=== PATIENT | male | born 1960 | race Caucasian/White ===

== ENCOUNTER 2017-01-30 22:52 | Emergency (ER) | payer BC ==
[2017-01-30] MEDS ORDERED: Aspirin 81 MG Tab.Chew PO ONE (23:23)
[2017-01-30] MEDS ORDERED: Nitroglycerin 0.4 MG Tab.SL SL ONE (23:25)
[2017-01-30 23:34] LABS: CHLORIDE,CL 102 mEq/L (98-106); SODIUM,NA 139 mEq/L (136-145)
--- NOTE | 2017-01-30 23:38 | EDM.PDOC ---
ED HISTORY OF PRESENT ILLNESS - General Chief Complaint: Respiratory Problem Stated Complaint: shortness of breath Time Seen by Provider: 01/30/17 23:22 Source of Information: Reports: Patient History Limitations: Reports: No limitations - History of Present Illness INITIAL COMMENTS - FREE TEXT/NARRATIVE: in with c/o MS cp to left arm that started x 2 weeks ago, worse tonight while at work, denies pain now, no sob, no fever or chills, no abd pain,no nvdc, no irregular heart beat or palpitations. has a hx of CABG and 2 PR's. pt also advised has self stopped b/p and cholesterol meds, advise it "makes my stomach upset", asked if he has told his pcp and he advised "no". asked if he has been taking his diabetic meds, advised" i don't know, i'm not sure". Severity: mild Location, General: Reports: chest Quality: Reports: Ache Improves with: Reports: None Worsens with: Reports: None Context, General: Reports: Activity Associated Symptoms (General): Reports: chest pain. Denies: cough, cough w sputum, fever/chills, nausea/vomiting, rash, shortness of breath, weakness Treatments CELL POURER: Reports: Other (see below) (none) - Related Data Allergies/ADRs: Allergies Allergy/AdvReac Type Severity Reaction Status Date / Time cefaclor [From Ceclor] Allergy Severe Rash Verified 01/30/17 23:13 levofloxacin [From Levaquin] Allergy Intermediate Itching Verified 01/30/17 23: 13 Home Meds: Home Meds Aspirin [Juan J Chewable] 81 mg PO DAILY 06/30/14 [History] Carvedilol [Carvedilol] 3.125 mg PO DAILY 06/30/14 [History] Insulin Glarg,Human.Rec.Analog [Lantus Solostar] 20 units SQ BEDTIME 06/30/14 [ History] Losartan Potassium [Losartan Potassium] 25 mg PO DAILY 06/30/14 [History] Insuln Asp Prot/Insulin Aspart [NovoLOG Mix 70-30] 20 units SQ BID 01/30/17 [ History] Past Medical History Cardiovascular History: Reports: Angina, CAD, High cholesterol, Hypertension, [place] (X 2) Respiratory History: Reports: COPD, Sleep apnea Endocrine/Metabolic History: Reports: Diabetes, type II - Past Surgical History Cardiovascular Surgical History: Reports: Carotid stents, Coronary artery bypass , Other (see below) (pacer/defib) Social & Family History - Family History Cardiac: Reports: CAD, Hypertension Oncologic: Reports: Other (see below) (breast and prostate ca) - Tobacco Use Smoking Status *Q: Former Smoker (non x 20 years) Second Hand Smoke Exposure: No - Alcohol Use Days Per Week of Alcohol Use: 7 Number of Drinks Per Day: 3 Total Drinks Per Week: 21 Alcohol Use Frequency: Daily - Recreational Drug Use Recreational Drug Use: No - Living Situation & Occupation Living situation: Reports: single ED ROS GENERAL - Review of Systems Review Of Systems: See Below Constitutional: Reports: no symptoms. Denies: fever, chills HEENT: Reports: No symptoms Respiratory: Reports: no symptoms. Denies: shortness of breath Cardiovascular: Reports: Chest pain. Denies: Blood pressure problem, Dyspnea on exertion, Edema, Palpitations, Syncope Endocrine: Reports: no symptoms GI/Abdominal: Reports: No symptoms. Denies: Abdominal pain, Nausea, Vomiting Musculoskeletal: Reports: no symptoms. Denies: neck pain, back pain Skin: Reports: no symptoms Neurological: Reports: no symptoms Psychiatric: Reports: No symptoms Hematologic/Lymphatic: Reports: no symptoms Immunologic: Reports: no symptoms ED EXAM, GENERAL - Physical Exam Exam: See Below Exam Limited By: No limitations General Appearance: alert, WD/WN, no apparent distress Ears: normal external exam Nose: normal inspection Throat/Mouth: Normal inspection, Normal voice, No airway compromise Head: atraumatic, normocephalic Neck: normal inspection, supple, non-tender, full range of motion Respiratory/Chest: no respiratory distress, lungs clear, normal breath sounds, no accessory muscle use Cardiovascular: normal peripheral pulses, regular rate, rhythm, no edema, no murmur Peripheral Pulses: 2+: radial (L), radial (R), posterior tibial (L), posterior tibial (R) GI/Abdominal: soft, non tender, other (obese) Back Exam: normal inspection, full range of motion Extremities: normal inspection, normal range of motion, non-tender, no pedal edema, normal capillary refill Neurological: alert, oriented, normal cognition, normal gait, no motor/sensory deficits Psychiatric: normal affect, normal mood Skin Exam: Warm, Dry, Intact, Normal color, No rash EKG INTERPRETATION EKG Date: 01/30/17 Time: 23:05 Rhythm: other (SR) Rate (beats/min): 102 P-wave: present QRS: RBBB ST-T: normal QT: normal EKG Interpretation Comments: No STEMI, Stach rate 102, RBBB Course - Vital Signs Last Recorded V/S: Last Vital Signs Temp 36.9 C 01/31/17 00:33 Pulse 98 01/31/17 00:33 Resp 20 01/31/17 00:33 BP 182/95 H 01/31/17 00:33 Pulse Ox 99 01/31/17 00:33 - Orders/Labs/Meds Orders: Active Orders 24 hr Category Date Time Status Chest 2V [CR] Stat Exams 01/30/17 23:25 Taken Heparin Sodium/D5W [Heparin 25,000 Units in D5W 500 ML] Med 01/30/17 23:46 Active 25,000 units in 500 ml IV NOW Medication Orders Heparin Sodium/Dextrose (Heparin 25,000 Units In D5w 500 Ml) 25,000 units in 500 mls @ 20 mls/hr IV NOW STA PRN Reason: Protocol Stop: 02/01/17 00:45 Last Admin: 01/31/17 00:24 Dose: 20 ml/hr, 20 mls/hr Labs: Laboratory Tests 01/30/17 01/30/17 01/30/17 Range/Units 23:17 23:17 23:17 WBC 9.6 (5.0-10.0) 10^3/uL RBC 4.68 (4.50-6.00) 10^6/uL Hgb 13.7 L (14.0-18.0) g/dL Hct 40.5 (40.0-54.0) % MCV 86.5 (82.0-94.0) fL MCH 29.3 (27.0-32.0) pg MCHC 33.8 (33.0-38.0) g/dL RDW Coeff of Celina 13.5 (11.0-15.0) % Plt Count 239 (150-400) 10^3/uL Neut % (Auto) 62.5 (35-85) % Lymph % (Auto) 27.8 (10-55) % [place] % (Auto) 6.5 (0-16) % Eos % (Auto) 2.7 (0-5) % Baso % (Auto) 0.5 (0-3) % Neut # 5.99 (1.80-7.00) 10^3/uL Lymph # 2.67 (1.00-4.80) 10^3/uL [place] # 0.62 (0.00-0.80) 10^3/uL Eos # 0.26 (0.00-0.45) 10^3/uL Baso # 0.05 10^3/uL PT 10.3 (9.7-12.3) SEC INR 0.97 (0.92-1.18) APTT 28.6 (24.5-30.9) SEC Sodium 139 (136-145) mEq/L Potassium 3.6 (3.5-5.0) mEq/L Chloride 102 (98-106) mEq/L Carbon Dioxide 24 (21-32) mmol/L BUN 17 D (7-18) mg/dL Creatinine 1.1 (0.7-1.3) mg/dL Est Cr Clr Drug Dosing 70.11 mL/min Estimated GFR (MDRD) > 60 (>=60) mL/min Glucose 333 H* (75-99) mg/dL Calcium 9.2 (8.4-10.1) mg/dL Lactate Dehydrogenase 168 (100-190) U/L Creatine Kinase 95 (35-232) U/L Troponin I 0.116 H (0.00-0.06) ng/mL Meds: Medications Generic Name Dose Route Start Last Admin Trade Name Freq PRN Reason Stop Dose Admin Heparin Sodium/Dextrose 25,000 units in 500 mls @ 20 mls/hr 01/30/17 23:46 00:24 Heparin 25,000 Units In D5w 500 Ml IV 02/01/17 00:45 20 ml/hr NOW STA 20 mls/hr Protocol Administration Discontinued Medications Generic Name Dose Route Start Last Admin Trade Name Freq PRN Reason Stop Dose Admin Aspirin 324 mg 01/30/17 23:23 01/30/17 23:38 Aspirin PO 01/30/17 23:24 324 mg ONETIME ONE Administration Heparin Sodium (Porcine) 5,000 units 01/30/17 23:46 01/31/17 00:06 Heparin Sodium IVPUSH 01/30/17 23:47 5,000 units .BOLUS ONE Administration Nitroglycerin 0.4 mg 01/30/17 23:25 Nitrostat SL 01/30/17 23:26 ONETIME ONE Simvastatin 40 mg 01/31/17 20:00 Zocor PO BEDTIME DAVIDSON Simvastatin 40 mg 01/31/17 00:36 Zocor PO 01/31/17 00:37 ONETIME ONE - Radiology Interpretation Free Text/Narrative:: cxr neg Departure - Departure Time of Disposition: 00:14 Disposition: DC/Tfer to Acute Hospital 02 Condition: good Clinical Impression: ACS (acute coronary syndrome) Referrals: Provider,Unknown [Primary Care Provider] - Forms: Interfacility Transfer [facility] ED Communication - ED Communication Date/Time Date: 01/30/17 Time Called: 23:48 - Discussed Case With (1) Discussed Case With (1): Other (Dulce the transfer person at [facility] , advised no beds) Person/s Notified (2): Karla Falcon (Hospitalist at [facility] [place]) - Conversation Summary Admitting Provider Agreed to Patient's Admission: Yes Summary Comment: [id number] Dr. Falcon will admit pt - Problem List & Annotations (1) ACS (acute coronary syndrome) SNOMED Code(s): 106792378 Code(s): I24.9 - ACUTE ISCHEMIC HEART DISEASE, UNSPECIFIED Status: Acute Priority: High Current Visit: Yes Onset Date: ~01/31/17 - Problem List Review Problem List Initiated/Reviewed/Updated: Yes - My Orders Last 24 Hours: My Active Orders 01/30/17 23:25 Chest 2V [CR] Stat 01/30/17 23:46 Heparin Sodium/D5W [Heparin 25,000 Units in D5W 500 ML] 25,000 units in 500 ml IV NOW - Assessment/Plan Last 24 Hours: My Active Orders 01/30/17 23:25 Chest 2V [CR] Stat 01/30/17 23:46 Heparin Sodium/D5W [Heparin 25,000 Units in D5W 500 ML] 25,000 units in 500 ml IV NOW Plan: pt benefit of transfer will be eval and treat by a clinical trials data coordinator not available at [place], Risk is MVC, worsening of condition and .
[2017-01-30] MEDS ORDERED: Heparin Sodium/D5W 25,000 UNITS/500 ML BAG IV STA (23:46)
[2017-01-30] MEDS ORDERED: Heparin Sodium 10,000 Units/1 ML MDV IVPUSH ONE (23:46)
[2017-01-31] MEDS ORDERED: Simvastatin 40 MG Tab PO ONE (00:36)
[2017-01-31] MEDS ORDERED: Nitroglycerin 2% Oint 1 GM UD Packet ONE (00:57)
[2017-01-31] MEDS ORDERED: Nitroglycerin 2% Oint 1 GM UD Packet TOP ONE (01:00)
[2017-01-31 01:53] VITALS: BP 143/91
[2017-01-31] MEDS ORDERED: Simvastatin 40 MG Tab PO SCH (20:00)
== END 2017-01-31 02:23 ==
LOC: CC.ED 22:52
DX: I24.9 Acute ischemic heart disease, unspecified (principal); E78.00 Pure hypercholesterolemia, unspecified; I10 Essential (primary) hypertension; I25.2 Old myocardial infarction; J44.9 Chronic obstructive pulmonary disease, unspecified; E11.9 Type 2 diabetes mellitus without complications; Z79.4 Long term (current) use of insulin; Z79.82 Long term (current) use of aspirin; Z79.899 Other long term (current) drug therapy; I25.810 Atherosclerosis of coronary artery bypass graft(s) without angina pectoris; Z87.891 Personal history of nicotine dependence; Z88.1 Allergy status to other antibiotic agents; Z88.8 Allergy status to other drugs, medicaments and biological substances
CPT/HCPCS: 36415; 71020; 80048; 82550; 83615; 84484; 85025; 85610; 85730; 93005; 96365; 96366; 96375; 99285; A9270; J1644

== ENCOUNTER 2017-05-09 15:31 | Emergency (ER) | payer BC ==
[2017-05-09] MEDS ORDERED: Aspirin 81 MG Tab.Chew PO ONE (15:55)
[2017-05-09] MEDS: Nitroglycerin 0.4 MG Tab.SL SL PRN ×3 (15:56→16:36)
[2017-05-09 16:11] LABS: CHLORIDE,CL 101 mEq/L (98-106)
[2017-05-09] MEDS ORDERED: Morphine 2 MG/ML Syringe IVPUSH ONE (16:30)
[2017-05-09] MEDS ORDERED: Sodium Chloride 0.9% 1,000 ML IV ONE (16:30)
[2017-05-09] MEDS ORDERED: Ondansetron 4 MG/2 ML SDV IVPUSH STA (16:31)
--- NOTE | 2017-05-09 16:39 | EDM.PDOC ---
[id number] 4d chest pain Time Seen by Provider: 05/09/17 16:19 Source of Information: Reports: Patient History Limitations: Reports: No Limitations - History of Present Illness INITIAL COMMENTS - FREE TEXT/NARRATIVE: This patient is a 56 year old male that presents to the ER. Patient reports that he started on Tuesday after his second break. Patient reports that his chest pain was substernal. He reports that the pain is constant, never goes away , does wax and wane. He reports his pain when severe is a 10/10, at best is 5/ 10. He does report that he is short of breath, reports chronic shortness of breath, but reports more than usual. Patient denies garcia, dizziness, n, v, d, f, abd pain, urinary/bowel changes, rashes. Patient reports that he has history of having several MIs. Patient reports years ago having x1 BYpass vessel. He reports in January 2017 having 2 stents, in February having 1 stent. Patient is alert and oriented. Cardiac workup ordered.Patient reports this feels like previous MIs. Onset Date: 04/30/17 Onset Time: 13:00 Duration: Waxing/Waning Location: Reports: Chest Severity: Moderate Improves with: Reports: None Worsens with: Reports: None Associated Symptoms: Reports: Chest Pain, Shortness of Breath. Denies: Confusion, Cough, cough w sputum, Diaphoresis, Fever/Chills, Headaches, Loss of Appetite, Malaise, Nausea/Vomiting, Rash, Seizure, Syncope, Weakness Middle Chest Pain Score (Numeric/FACES): 5 - Related Data Allergies Allergy/AdvReac Type Severity Reaction Status Date / Time cefaclor [From Ceclor] Allergy Severe Rash Verified 05/09/17 16:13 levofloxacin [From Levaquin] Allergy Intermediate Itching Verified 05/09/17 16: 13 Home Meds: Home Meds Aspirin [Juan J Chewable] 81 mg PO DAILY 06/30/14 [History] Carvedilol [Carvedilol] 3.125 mg PO DAILY 06/30/14 [History] Insuln Asp Prot/Insulin Aspart [NovoLOG Mix 70-30] 20 units SQ BID 01/30/17 [ History] Clopidogrel Bisulfate [Clopidogrel] 75 mg PO DAILY 03/26/17 [History] Furosemide [Furosemide] 40 mg PO DAILY 03/26/17 [History] Gabapentin [Gabapentin] 300 mg PO BID 03/26/17 [History] Sacubitril/Valsartan [Entresto 49 mg-51 mg Tablet] 1 tab PO DAILY 05/09/17 [ History] Tresiba 20 - 25 unit SUBCUT BEDTIME 05/09/17 [History] atorvaSTATin [Lipitor] 40 mg PO DAILY 05/09/17 [History] Past Medical History Cardiovascular History: Reports: Angina, Bypass, CAD, High Cholesterol, Hypertension, [place] Respiratory History: Reports: COPD, Sleep Apnea Endocrine/Metabolic History: Reports: Diabetes, Type II - Past Surgical History HEENT Surgical History: Reports: Tonsillectomy Cardiovascular Surgical History: Reports: Carotid Stents, Coronary Artery Bypass , Other (See Below) Social & Family History - Family History Cardiac: Reports: CAD, Hypertension Oncologic: Reports: Other (See Below) - Tobacco Use Smoking Status *Q: Former Smoker Used Tobacco, but Quit: Yes Month Tobacco Last Used: 2001 Second Hand Smoke Exposure: Yes - Caffeine Use Caffeine Use: Reports: None - Alcohol Use Days Per Week of Alcohol Use: 7 Number of Drinks Per Day: 3 Total Drinks Per Week: 21 - Recreational Drug Use Recreational Drug Use: No - Living Situation & Occupation Living situation: Reports: Single ED ROS GENERAL - Review of Systems Review Of Systems: See Below Constitutional: Reports: No Symptoms HEENT: Reports: No Symptoms Respiratory: Reports: Shortness of Breath Cardiovascular: Reports: Chest Pain, Dyspnea on Exertion Endocrine: Reports: No Symptoms GI/Abdominal: Reports: No Symptoms : Reports: No Symptoms Musculoskeletal: Reports: No Symptoms Skin: Reports: No Symptoms Neurological: Reports: No Symptoms Psychiatric: Reports: No Symptoms Hematologic/Lymphatic: Reports: No Symptoms Immunologic: Reports: No Symptoms ED EXAM, GENERAL - Physical Exam Exam: See Below Exam Limited By: No Limitations General Appearance: Alert, WD/WN, No Apparent Distress Eye Exam: Bilateral Eye: Normal Inspection, PERRL Ears: Normal External Exam, Normal Canal, Hearing Grossly Normal, Normal TMs Ear Exam: Bilateral Ear: Auricle Normal, Canal Normal, TM normal Nose: Normal Inspection, Normal Mucosa, No Blood Throat/Mouth: Normal Inspection, Normal Lips, Normal Teeth, Normal Gums, Normal Oropharynx, Normal Voice, No Airway Compromise Head: Atraumatic, Normocephalic Neck: Normal Inspection, Supple, Non-Tender, Full Range of Motion Respiratory/Chest: No Respiratory Distress, Lungs Clear, Normal Breath Sounds, No Accessory Muscle Use, Chest Non-Tender Cardiovascular: Normal Peripheral Pulses, Regular Rate, Rhythm, No Edema, No Gallop, No JVD, Systolic Murmur Peripheral Pulses: 2+: Radial (L), Radial (R), Posterior Tibial (L), Posterior Tibial (R) GI/Abdominal: Soft, Non-Tender Back Exam: Normal Inspection, Full Range of Motion Extremities: Normal Inspection, Normal Range of Motion, Non-Tender, No Pedal Edema, Normal Capillary Refill Neurological: Alert, Oriented, Normal Cognition Psychiatric: Normal Affect, Normal Mood Skin Exam: Warm, Dry, Intact, Normal Color, No Rash Lymphatic: No Adenopathy EKG INTERPRETATION EKG Date: 05/09/17 Time: 15:41 Rhythm: other (Ventricular Paced) Rate (beats/min): 88 Course - Vital Signs Last Recorded V/S: Last Vital Signs Temp 98.0 F 05/09/17 18:10 Pulse 75 05/09/17 18:10 Resp 20 05/09/17 18:10 BP 91/53 L 05/09/17 18:10 Pulse Ox 96 05/09/17 18:10 - Orders/Labs/Meds Orders: Active Orders 24 hr Category Date Time Status EKG Documentation Completion [RC] STAT Care 05/09/17 15:40 Active Oxygen Therapy, ED [RC] ASDIRECTED Care 05/09/17 15:35 Active Chest 2V [CR] Stat Exams 05/09/17 15:40 Taken Labs: Laboratory Tests 05/09/17 05/09/17 05/09/17 Range/Units 15:49 15:49 15:49 WBC 9.1 (5.0-10.0) 10^3/uL RBC 4.53 (4.50-6.00) 10^6/uL Hgb 13.1 L (14.0-18.0) g/dL Hct 39.4 L (40.0-54.0) % MCV 87.0 (82.0-94.0) fL MCH 28.9 (27.0-32.0) pg MCHC 33.2 (33.0-38.0) g/dL RDW Coeff of [place] 13.8 (11.0-15.0) % Plt Count 235 (150-400) 10^3/uL Neut % (Auto) 65.9 (35-85) % Lymph % (Auto) 21.7 (10-55) % [place] % (Auto) 8.9 (0-16) % Eos % (Auto) 3.2 (0-5) % Baso % (Auto) 0.3 (0-3) % Neut # (Auto) 5.99 (1.80-7.00) 10^3/uL Lymph # (Auto) 1.97 (1.00-4.80) 10^3/uL [place] # (Auto) 0.81 H (0.00-0.80) 10^3/uL Eos # (Auto) 0.29 (0.00-0.45) 10^3/uL Baso # (Auto) 0.03 10^3/uL PT 10.7 (9.7-12.3) SEC INR 0.99 (0.92-1.18) APTT 29.4 (24.5-30.9) SEC Sodium 137 (136-145) mEq/L Potassium 3.5 (3.5-5.0) mEq/L Chloride 101 (98-106) mEq/L Carbon Dioxide 25 (21-32) mmol/L BUN 13 (7-18) mg/dL Creatinine 1.0 (0.7-1.3) mg/dL Est Cr Clr Drug Dosing 77.12 mL/min Estimated GFR (MDRD) > 60 (>=60) mL/min Glucose 382 H* D (75-99) mg/dL Calcium 8.5 (8.4-10.1) mg/dL Lactate Dehydrogenase 153 (100-190) U/L Creatine Kinase 85 (35-232) U/L Troponin I 0.183 H (0.00-0.06) ng/mL Meds: Medications Discontinued Medications Generic Name Dose Route Start Last Admin Trade Name Freq PRN Reason Stop Dose Admin Aspirin 364 mg 05/09/17 15:55 05/09/17 15:56 Aspirin PO 05/09/17 15:56 364 mg ONETIME ONE Administration Heparin Sodium (Porcine) 5,000 units 05/09/17 17:58 05/09/17 18:03 Heparin Sodium IVPUSH 05/09/17 17:59 5,000 units .BOLUS ONE Administration Sodium Chloride 1,000 mls @ 1,000 mls/hr 05/09/17 16:30 05/09/17 16:45 Normal Saline IV 05/09/17 17:29 1,000 mls/hr .BOLUS ONE Administration Nitroglycerin/Dextrose 25 mg in 250 mls @ 6 mls/hr 05/09/17 17:15 05/09/17 17 :43 Nitroglycerin 25 Mg/D5w 250 Ml IV 10 mcg/min TITRATE DAVIDSON 6 mls/hr Protocol Administration 10 MCG/MIN Heparin Sodium/Dextrose 25,000 units in 500 mls @ 19.885 mls/hr 05/09/17 18: 00 Heparin 25,000 Units In D5w 500 Ml IV TITRATE DAVIDSON Protocol 8 UNITS/KG/HR Morphine Sulfate 2 mg 05/09/17 16:30 05/09/17 16:53 Morphine IVPUSH 05/09/17 16:31 2 mg ONETIME ONE Administration Nitroglycerin 0.4 mg 05/09/17 15:55 05/09/17 16:36 Nitrostat SL 05/09/17 16:06 0.4 mg Q5M PRN Administration Chest Pain Ondansetron HCl 4 mg 05/09/17 16:31 05/09/17 16:50 Zofran IVPUSH 05/09/17 16:32 4 mg NOW STA Administration - Radiology Interpretation Free Text/Narrative:: CXR: pacemarker, dfib intact. no infiltrate, no edema. - Re-Assessments/Exams Free Text/Narrative Re-Assessment/Exam: 05/09/17 17:00 I called and spoke to Dr. Mccoy the hospitalist at [facility]. I discussed patient case with him. He has agreed to accept the patient. Requests Heparin gtt, bolus, and nitro gtt if BP permits. Departure - Departure Time of Disposition: 17:45 Disposition: DC/Tfer to Acute Hospital 02 Reason for Transfer *Q: Primary PCI Indicated Condition: fair Clinical Impression: Acute myocardial infarction Qualifiers: Myocardial infarction ST status: non-ST elevation myocardial infarction Qualified Code(s): I21.4 - Non-ST elevation (NSTEMI) myocardial infarction Referrals: Mitchell Nichols MD [Primary Care Provider] - Forms: ED Department Discharge - My Orders Last 24 Hours: My Active Orders 05/09/17 15:35 Oxygen Therapy, ED [RC] ASDIRECTED 05/09/17 15:40 EKG Documentation Completion [RC] STAT Chest 2V [CR] Stat - Assessment/Plan Last 24 Hours: My Active Orders 05/09/17 15:35 Oxygen Therapy, ED [RC] ASDIRECTED 05/09/17 15:40 EKG Documentation Completion [RC] STAT Chest 2V [CR] Stat Plan: PLEASE SEE RN NOTE FOR PFSH. The risks of transfer are helicopter crash, worsening of condition, cardiac arrest, . The benefits of transfer are siebel consultant specialist, slab off mill tender if needed, stent placement if needed, open heart surgery if needed. The benefits of staying here in [place] are close to home. The risks of staying in [place] are , cardiac arrest, worsening of condition.
[2017-05-09 16:44] LABS: SODIUM,NA 137 mEq/L (136-145)
[2017-05-09] MEDS ORDERED: Nitroglycerin/D5W 25 MG/250 ML BOTTLE IV SCH (17:15)
[2017-05-09] MEDS ORDERED: Heparin Sodium 10,000 Units/1 ML MDV IVPUSH ONE (17:58)
[2017-05-09] MEDS ORDERED: Heparin Sodium/D5W 25,000 UNITS/500 ML BAG IV SCH (18:00)
[2017-05-09 18:34] VITALS: BP 91/53
== END 2017-05-09 18:25 ==
LOC: CC.ED 15:31
DX: I21.4 Non-ST elevation (NSTEMI) myocardial infarction (principal); I25.810 Atherosclerosis of coronary artery bypass graft(s) without angina pectoris; E78.00 Pure hypercholesterolemia, unspecified; I10 Essential (primary) hypertension; I25.2 Old myocardial infarction; J44.9 Chronic obstructive pulmonary disease, unspecified; E11.9 Type 2 diabetes mellitus without complications; Z95.5 Presence of coronary angioplasty implant and graft; Z88.1 Allergy status to other antibiotic agents; Z88.8 Allergy status to other drugs, medicaments and biological substances; Z79.82 Long term (current) use of aspirin; Z79.899 Other long term (current) drug therapy; Z87.891 Personal history of nicotine dependence
CPT/HCPCS: 36415; 71020; 80048; 82550; 83615; 84484; 85025; 85610; 85730; 93005; 96361; 96365; 96375; 99285; A9270; J1644; J2270; J2405; J7030; 96374

== ENCOUNTER 2017-06-18 14:54 | Emergency (ER) | payer BC ==
[~2017-06-18 14:54] MED LIST: Amoxicillin/Clavulanate K 875-125 MG Tab PO ONE
[2017-06-18 15:02] VITALS: BP 145/88
[2017-06-18] MEDS ORDERED: Take Home: Amoxicillin/Clavulanate K 875-125 MG Tab, 2 Tab Pack PO ONE (15:02)
--- NOTE | 2017-06-18 15:06 | EDM.PDOC ---
ED HPI GENERAL MEDICAL PROBLEM - General Chief Complaint: General Stated Complaint: mouth complaint Time Seen by Provider: 06/18/17 15:03 History Limitations: Reports: No Limitations - History of Present Illness INITIAL COMMENTS - FREE TEXT/NARRATIVE: Swollen Painfull right lower mandible Onset: Gradual Duration: Day(s): Location: Reports: Face Quality: Reports: Ache Severity: Moderate Right Tooth/Teeth Pain Score (Numeric/FACES): 3 - Related Data Allergies Allergy/AdvReac Type Severity Reaction Status Date / Time cefaclor [From Ceclor] Allergy Severe Rash Verified 06/18/17 15:02 levofloxacin [From Levaquin] Allergy Intermediate Itching Verified 06/18/17 15: 02 Home Meds: Home Meds Aspirin [Juan J Chewable] 81 mg PO DAILY 06/30/14 [History] Carvedilol [Carvedilol] 3.125 mg PO DAILY 06/30/14 [History] Insuln Asp Prot/Insulin Aspart [NovoLOG Mix 70-30] 20 units SQ BID 01/30/17 [ History] Clopidogrel Bisulfate [Clopidogrel] 75 mg PO DAILY 03/26/17 [History] Furosemide [Furosemide] 40 mg PO DAILY 03/26/17 [History] Gabapentin [Gabapentin] 300 mg PO BID 03/26/17 [History] Sacubitril/Valsartan [Entresto 49 mg-51 mg Tablet] 1 tab PO DAILY 05/09/17 [ History] Tresiba 20 - 25 unit SUBCUT BEDTIME 05/09/17 [History] atorvaSTATin [Lipitor] 40 mg PO DAILY 05/09/17 [History] Past Medical History Cardiovascular History: Reports: Angina, Bypass, CAD, High Cholesterol, Hypertension, [place] Respiratory History: Reports: COPD, Sleep Apnea Endocrine/Metabolic History: Reports: Diabetes, Type II - Past Surgical History HEENT Surgical History: Reports: Tonsillectomy Cardiovascular Surgical History: Reports: Carotid Stents, Coronary Artery Bypass , Other (See Below) Social & Family History - Family History Cardiac: Reports: CAD, Hypertension Oncologic: Reports: Other (See Below) - Tobacco Use Smoking Status *Q: Former Smoker Used Tobacco, but Quit: Yes Month Tobacco Last Used: 2001 Second Hand Smoke Exposure: Yes - Caffeine Use Caffeine Use: Reports: None - Alcohol Use Days Per Week of Alcohol Use: 7 Number of Drinks Per Day: 3 Total Drinks Per Week: 21 - Recreational Drug Use Recreational Drug Use: No - Living Situation & Occupation Living situation: Reports: Single ED ROS GENERAL - Review of Systems Review Of Systems: ROS reveals no pertinent complaints other than HPI. ED EXAM, GENERAL - Physical Exam Exam: See Below Free Text/Narrative:: right sided swollen jaw and gum area General Appearance: Alert, WD/WN Nose: Normal Inspection Throat/Mouth: Inflammation Extremities: Normal Inspection Neurological: Alert, Oriented Psychiatric: Normal Affect Skin Exam: Warm, Dry Course - Vital Signs Last Recorded V/S: Last Vital Signs Temp 97.4 F 06/18/17 14:57 Pulse 78 06/18/17 14:57 Resp 18 06/18/17 14:57 BP 145/88 H 06/18/17 14:57 Pulse Ox 98 06/18/17 14:57 - Orders/Labs/Meds Meds: Medications Discontinued Medications Generic Name Dose Route Start Last Admin Trade Name Freq PRN Reason Stop Dose Admin Amoxicillin/Clavulanate Potassium 2 packet 06/18/17 15:02 Take Home: Amox/Clavulanate 875-12, 2 Tab Pac PO 06/18/17 15:03 ONETIME ONE Departure - Departure Time of Disposition: 15:05 Disposition: Home, Self-Care 01 Condition: Good Clinical Impression: Abscessed tooth - Discharge Information Forms: ED Department Discharge Additional Instructions: Take you medications as prescribed. See your dentist Tuesday.
== END 2017-06-18 15:22 | disposition home or self-care (01) ==
LOC: CC.ED 14:54
DX: K04.7 Periapical abscess without sinus (principal); I25.10 Atherosclerotic heart disease of native coronary artery without angina pectoris; I25.2 Old myocardial infarction; I10 Essential (primary) hypertension; J44.9 Chronic obstructive pulmonary disease, unspecified; E78.00 Pure hypercholesterolemia, unspecified; E11.9 Type 2 diabetes mellitus without complications; Z98.890 Other specified postprocedural states; Z95.1 Presence of aortocoronary bypass graft; Z95.5 Presence of coronary angioplasty implant and graft; Z87.891 Personal history of nicotine dependence; Z88.1 Allergy status to other antibiotic agents; Z88.8 Allergy status to other drugs, medicaments and biological substances; Z79.82 Long term (current) use of aspirin; Z79.899 Other long term (current) drug therapy; Z79.4 Long term (current) use of insulin
CPT/HCPCS: 99282; A9270

== ENCOUNTER 2017-08-05 23:03 | Observation (INO) | payer BC ==
--- NOTE | 2017-08-05 23:56 | EDM.PDOC ---
ED HPI GENERAL MEDICAL PROBLEM - General Chief Complaint: Chest Pain Stated Complaint: "HAVING CHEST TIGHTNESS" Time Seen by Provider: 08/05/17 23:25 Source of Information: Reports: Patient History Limitations: Reports: No Limitations - History of Present Illness INITIAL COMMENTS - FREE TEXT/NARRATIVE: Patient presents to ED with complaints of anterior chest tightness. States pain started about a 2 hours ago while at work. Has a strong cardiac history, relates has had 3 MIs since January. History of CABG and stent. Has AICD. States has noted more shortness of breath tonight. Can't walk much more than a few feet and starts to feel more SOB. Was hospitalized a week ago in [place] for CHF exacerbation. States had increased edema in his legs, was better after being in the hospital but now legs are bad again. Denies nausea. No diaphoresis. Does admit he tries to keep his legs elevated while at home but often not successful. Onset: Today, Sudden Duration: Hour(s): Location: Reports: Chest Quality: Reports: Pressure Severity: Moderate Improves with: Reports: Movement Worsens with: Reports: Rest Associated Symptoms: Reports: Chest Pain, Shortness of Breath. 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 Chest Pain Score (Numeric/FACES): 4 - Related Data Allergies Allergy/AdvReac Type Severity Reaction Status Date / Time cefaclor [From Ceclor] Allergy Severe Rash Verified 08/06/17 09:49 levofloxacin [From Levaquin] Allergy Intermediate Itching Verified 08/06/17 09: 49 ramipril [From Altace] Allergy Cannot Verified 08/06/17 09:49 Remember Home Meds: Home Meds Aspirin [Juan J Chewable] 81 mg PO DAILY 06/30/14 [History] Insuln Asp Prot/Insulin Aspart [NovoLOG Mix 70-30] 20 units SQ ACBREAKFAST 01/30 [History] Furosemide [Furosemide] 40 mg PO DAILY 03/26/17 [History] Gabapentin [Gabapentin] 300 mg PO BID 03/26/17 [History] Sacubitril/Valsartan [Entresto 49 mg-51 mg Tablet] 1 tab PO DAILY 05/09/17 [ History] Tresiba 20 - 25 unit SUBCUT BEDTIME 05/09/17 [History] atorvaSTATin [Lipitor] 40 mg PO DAILY 05/09/17 [History] Ticagrelor [Brilinta] 90 mg PO BID 08/05/17 [History] Insulin Aspart Protam & Aspart [Novolog Mix 70-30 Flexpen Syrn] 15 unit SQ WITHDINNER 08/06/17 [History] Metoprolol Tartrate 50 mg PO DAILY 08/06/17 [History] Potassium Chloride 10 meq PO DAILY 08/06/17 [History] Past Medical History Cardiovascular History: Reports: Angina, Bypass, CAD, High Cholesterol, Hypertension, [place] Respiratory History: Reports: COPD, Sleep Apnea Endocrine/Metabolic History: Reports: Diabetes, Type II - Past Surgical History HEENT Surgical History: Reports: Tonsillectomy Cardiovascular Surgical History: Reports: Carotid Stents, Coronary Artery Bypass , Other (See Below) Social & Family History - Family History Cardiac: Reports: CAD, Hypertension Oncologic: Reports: Other (See Below) - Tobacco Use Smoking Status *Q: Former Smoker Used Tobacco, but Quit: Yes Month Tobacco Last Used: 2001 Second Hand Smoke Exposure: Yes - Caffeine Use Caffeine Use: Reports: None - Alcohol Use Days Per Week of Alcohol Use: 7 Number of Drinks Per Day: 3 Total Drinks Per Week: 21 - Recreational Drug Use Recreational Drug Use: No - Living Situation & Occupation Living situation: Reports: Single ED ROS GENERAL - Review of Systems Review Of Systems: See Below Constitutional: Denies: Fever, Chills, Malaise, Weakness HEENT: Reports: No Symptoms Respiratory: Reports: Shortness of Breath. Denies: Wheezing, Cough Cardiovascular: Reports: Chest Pain, Edema. Denies: Lightheadedness Endocrine: Reports: Fatigue GI/Abdominal: Denies: Abdominal Pain, Constipation, Diarrhea, Nausea, Vomiting : Reports: No Symptoms Musculoskeletal: Reports: No Symptoms Skin: Reports: Pallor Neurological: Reports: No Symptoms ED EXAM, GENERAL - Physical Exam Exam: See Below Exam Limited By: No Limitations General Appearance: Alert, WD/WN, No Apparent Distress Ears: Normal External Exam, Normal TMs Nose: Normal Inspection, Normal Mucosa, No Blood Throat/Mouth: Normal Inspection, Normal Oropharynx Head: Normocephalic Respiratory/Chest: No Respiratory Distress, Decreased Breath Sounds Cardiovascular: Regular Rate, Rhythm GI/Abdominal: Normal Bowel Sounds, Soft, Non-Tender Extremities: Pedal Edema (2+ pitting edema in lower extremities) Neurological: Alert, Oriented Psychiatric: Normal Affect, Normal Mood Skin Exam: Warm, Dry Course - Vital Signs Last Recorded V/S: Last Vital Signs Temp 98.0 F 08/06/17 09:29 Pulse 67 08/06/17 09:29 Resp 16 08/06/17 09:29 BP 100/78 08/06/17 09:29 Pulse Ox 96 08/06/17 09:29 - Orders/Labs/Meds Orders: Active Orders 24 hr Category Date Time Status Patient Status [ADT] Routine ADT 08/06/17 09:29 Active Oxygen Therapy [RC] .PRN Care 08/06/17 09:29 Active Telemetry Monitoring [Cardiac Monitoring] [RC] 0800, Care 08/06/17 00:30 Active 2000 Up With Assistance [RC] .PRN Care 08/06/17 09:29 Active Vital Signs [RC] 0000,0400,0800,1200,1600,2000 Care 08/06/17 09:29 Active 2 Gram Sodium Diet [DIET] Diet 08/06/17 Lunch Active Chest 2V [CR] Stat Exams 08/05/17 23:38 Taken CREATINE KINASE,CK [CHEM] Routine Lab 08/06/17 12:00 Ordered LACTATE DEHYDROGENASE,LDH [CHEM] Stat Lab 08/06/17 12:00 Ordered TROPONIN I [CHEM] Routine Lab 08/06/17 12:00 Ordered Acetaminophen [Tylenol] Med 08/06/17 09:29 Active 650 mg PO Q4H PRN Enoxaparin [Lovenox] Med 08/06/17 09:00 Active 40 mg SUBCUT Q24H Ondansetron [Zofran ODT] Med 08/06/17 09:29 Active 4 mg PO Q4H PRN Sodium Chloride 0.9% [Saline Flush] Med 08/06/17 09:29 Active 10 ml FLUSH ASDIRECTED PRN Saline Lock Insert [OM.PC] Routine Oth 08/06/17 09:29 Ordered Resuscitation Status Routine Resus Stat 08/06/17 08:56 Ordered EKG 12 Lead [EK] Routine Ther 08/06/17 12:00 Ordered Medication Orders Acetaminophen (Tylenol) 650 mg PO Q4H PRN PRN Reason: Pain (Mild 1-3)/fever Enoxaparin Sodium (Lovenox) 40 mg SUBCUT Q24H DAVIDSON Last Admin: 08/06/17 10:13 Dose: 40 mg Ondansetron HCl (Zofran Odt) 4 mg PO Q4H PRN PRN Reason: nausea, able to take PO Sodium Chloride (Saline Flush) 10 ml FLUSH ASDIRECTED PRN PRN Reason: Keep Vein Open Labs: Laboratory Tests 08/05/17 08/05/17 08/05/17 Range/Units 23:19 23:19 23:19 WBC 12.1 H (5.0-10.0) 10^3/uL RBC 4.33 L (4.50-6.00) 10^6/uL Hgb 12.2 L (14.0-18.0) g/dL Hct 38.3 L (40.0-54.0) % MCV 88.5 (82.0-94.0) fL MCH 28.2 (27.0-32.0) pg MCHC 31.9 L (33.0-38.0) g/dL RDW Coeff of Celina 14.4 (11.0-15.0) % Plt Count 267 (150-400) 10^3/uL Neut % (Auto) 79.4 (35-85) % Lymph % (Auto) 12.4 (10-55) % Izard % (Auto) 6.8 (0-16) % Eos % (Auto) 1.2 (0-5) % Baso % (Auto) 0.2 (0-3) % Neut # (Auto) 9.65 H (1.80-7.00) 10^3/uL Lymph # (Auto) 1.50 (1.00-4.80) 10^3/uL Izard # (Auto) 0.82 H (0.00-0.80) 10^3/uL Eos # (Auto) 0.15 (0.00-0.45) 10^3/uL Baso # (Auto) 0.02 10^3/uL PT 12.0 (9.7-12.3) SEC INR 1.11 (0.92-1.18) APTT 27.0 (24.5-30.9) SEC D-Dimer, Quantitative 0.22 (0.00-0.50) Sodium 142 (136-145) mEq/L Potassium 4.1 (3.5-5.0) mEq/L Chloride 105 (98-106) mEq/L Carbon Dioxide 28 (21-32) mmol/L BUN 18 (7-18) mg/dL Creatinine 1.5 H (0.7-1.3) mg/dL Est Cr Clr Drug Dosing 51.41 mL/min Estimated GFR (MDRD) 48 L (>=60) mL/min Glucose 225 H D (75-99) mg/dL Calcium 8.8 (8.4-10.1) mg/dL Lactate Dehydrogenase 204 H (100-190) U/L Creatine Kinase 68 (35-232) U/L Troponin I 0.036 (0.00-0.06) ng/mL NT-Pro-B Natriuret Pep 2821 H (0-1000) pg/mL 08/06/17 Range/Units 07:00 WBC (5.0-10.0) 10^3/uL RBC (4.50-6.00) 10^6/uL Hgb (14.0-18.0) g/dL Hct (40.0-54.0) % MCV (82.0-94.0) fL MCH (27.0-32.0) pg MCHC (33.0-38.0) g/dL RDW Coeff of Celina (11.0-15.0) % Plt Count (150-400) 10^3/uL Neut % (Auto) (35-85) % Lymph % (Auto) (10-55) % Izard % (Auto) (0-16) % Eos % (Auto) (0-5) % Baso % (Auto) (0-3) % Neut # (Auto) (1.80-7.00) 10^3/uL Lymph # (Auto) (1.00-4.80) 10^3/uL Izard # (Auto) (0.00-0.80) 10^3/uL Eos # (Auto) (0.00-0.45) 10^3/uL Baso # (Auto) 10^3/uL PT (9.7-12.3) SEC INR (0.92-1.18) APTT (24.5-30.9) SEC D-Dimer, Quantitative (0.00-0.50) Sodium (136-145) mEq/L Potassium (3.5-5.0) mEq/L Chloride (98-106) mEq/L Carbon Dioxide (21-32) mmol/L BUN (7-18) mg/dL Creatinine (0.7-1.3) mg/dL Est Cr Clr Drug Dosing mL/min Estimated GFR (MDRD) (>=60) mL/min Glucose (75-99) mg/dL Calcium (8.4-10.1) mg/dL Lactate Dehydrogenase 179 (100-190) U/L Creatine Kinase 47 (35-232) U/L Troponin I 0.074 H (0.00-0.06) ng/mL NT-Pro-B Natriuret Pep (0-1000) pg/mL Meds: Medications Generic Name Dose Route Start Last Admin Trade Name Freq PRN Reason Stop Dose Admin Acetaminophen 650 mg 08/06/17 09:29 Tylenol PO Q4H PRN Pain (Mild 1-3)/fever Enoxaparin Sodium 40 mg 08/06/17 09:00 08/06/17 10:13 Lovenox SUBCUT 40 mg Q24H DAVIDSON Administration Ondansetron HCl 4 mg 08/06/17 09:29 Zofran Odt PO Q4H PRN nausea, able to take PO Sodium Chloride 10 ml 08/06/17 09:29 Saline Flush FLUSH ASDIRECTED PRN Keep Vein Open - Re-Assessments/Exams Free Text/Narrative Re-Assessment/Exam: 08/06/17 00:05 contacted [facility]. ProBNP on the was 3144 so mildly improved since that time. Will monitor cardiac status, vitals and sats and repeat troponin in 6 hours. Departure - Departure Time of Disposition: 09:30 Disposition: Refer to Observation Condition: Undetermined Clinical Impression: Chest pain - Problem List & Annotations (1) Chest pain SNOMED Code(s): 44757349 Code(s): R07.9 - CHEST PAIN, UNSPECIFIED Status: Acute Priority: High Current Visit: Yes Qualifiers: Ischemic chest pain type: stable angina pectoris - Problem List Review Problem List Initiated/Reviewed/Updated: Yes - My Orders Last 24 Hours: My Active Orders 08/05/17 23:38 Chest 2V [CR] Stat 08/06/17 00:30 Telemetry Monitoring [Cardiac Monitoring] [RC] 08/06/17 08:56 Resuscitation Status Routine 08/06/17 09:00 Enoxaparin [Lovenox] 40 mg SUBCUT Q24H 08/06/17 09:29 Patient Status [ADT] Routine Oxygen Therapy [RC] .PRN Up With Assistance [RC] .PRN Vital Signs [RC] 0000,0400,0800,1200,1600,2000 Acetaminophen [Tylenol] 650 mg PO Q4H PRN Ondansetron [Zofran ODT] 4 mg PO Q4H PRN Sodium Chloride 0.9% [Saline Flush] 10 ml FLUSH ASDIRECTED PRN Saline Lock Insert [OM.PC] Routine 08/06/17 12:00 CREATINE KINASE,CK [CHEM] Routine LACTATE DEHYDROGENASE,LDH [CHEM] Stat TROPONIN I [CHEM] Routine EKG 12 Lead [EK] Routine 08/06/17 Lunch 2 Gram Sodium Diet [DIET] - Assessment/Plan Admission H&P: Please use this note as an admission H&P Last 24 Hours: My Active Orders 08/05/17 23:38 Chest 2V [CR] Stat 08/06/17 00:30 Telemetry Monitoring [Cardiac Monitoring] [RC] 08/06/17 08:56 Resuscitation Status Routine 08/06/17 09:00 Enoxaparin [Lovenox] 40 mg SUBCUT Q24H 08/06/17 09:29 Patient Status [ADT] Routine Oxygen Therapy [RC] .PRN Up With Assistance [RC] .PRN Vital Signs [RC] 0000,0400,0800,1200,1600,2000 Acetaminophen [Tylenol] 650 mg PO Q4H PRN Ondansetron [Zofran ODT] 4 mg PO Q4H PRN Sodium Chloride 0.9% [Saline Flush] 10 ml FLUSH ASDIRECTED PRN Saline Lock Insert [OM.PC] Routine 08/06/17 12:00 CREATINE KINASE,CK [CHEM] Routine LACTATE DEHYDROGENASE,LDH [CHEM] Stat TROPONIN I [CHEM] Routine EKG 12 Lead [EK] Routine 08/06/17 Lunch 2 Gram Sodium Diet [DIET] Plan: Consulted with cardiology at [place] due to slight change in troponin. Patient is feeling better, less discomfort. Advised to again repeat the troponin in 4 hours. Admit for observation.
[2017-08-06] MEDS ORDERED: Enoxaparin 40 MG/0.4 ML Syringe SUBCUT SCH (09:00)
[2017-08-06] MEDS ORDERED: Acetaminophen 325 MG Tab PO PRN (09:29)
[2017-08-06] MEDS ORDERED: Sodium Chloride 0.9% 10 ML Syringe FLUSH PRN (09:29)
[2017-08-06] MEDS ORDERED: Ondansetron 4 MG Tab.DIS PO PRN (09:29)
[2017-08-06 11:53] VITALS: BP 121/74
--- NOTE | 2017-08-08 13:37 | PCM.DCSUM1 ---
Discharge Summary - Hospital Course Free Text/Narrative:: Patient presented to ED with complaints of chest pressure. Had been experiencing pain for about 90 minutes before presentation. Was at work at [employer] when started. He had associated shortness of breath but also had admitted that he has been experiencing this for a while and is set up to see a area coordinator next week. He has a significant cardiac history, previously 3 MIs since January. Had an AICD placed back in 2007 and has actually had this redone. He typically does see Dr. Long in [place] for routine care. Initial lab work is negative but due to cardiac history, felt should stay for repeat troponins. - Discharge Data Discharge Date: 08/06/17 Discharge Disposition: Home, Self-Care 01 Condition: Fair - Discharge Diagnosis/Problem(s) (1) Chest pain SNOMED Code(s): 54261152 ICD Code: R07.9 - CHEST PAIN, UNSPECIFIED Status: Acute Priority: High Qualifiers: Ischemic chest pain type: stable angina pectoris - Patient Summary/Data Complications: none Hospital Course: Patient's chest pain did improve while here. Troponin in am was intermediate so contacted the architectural administrative assistant who recommended a 3rd troponin which was back down to normal. Has rested well while here without new complaints. Is ambulating without pain. - Patient Instructions Diet: Usual Diet as Tolerated Activity: As Tolerated - Discharge Plan Home Medications: Home Meds Aspirin [Juan J Chewable Aspirin] 81 mg PO DAILY 06/30/14 [History] Insuln Asp Prot/Insulin Aspart [NovoLOG Mix 70-30] 20 units SQ ACBREAKFAST 01/30 [History] Furosemide 40 mg PO DAILY 03/26/17 [History] Gabapentin 300 mg PO BID 03/26/17 [History] Sacubitril/Valsartan [Entresto 49 mg-51 mg Tablet] 1 tab PO DAILY 05/09/17 [ History] Tresiba 20 - 25 unit SUBCUT BEDTIME 05/09/17 [History] atorvaSTATin [Lipitor] 40 mg PO DAILY 05/09/17 [History] Ticagrelor [Brilinta] 90 mg PO BID 08/05/17 [History] Insulin Aspart Protam & Aspart [Novolog Mix 70-30 Flexpen Syrn] 15 unit SQ WITHDINNER 08/06/17 [History] Metoprolol Tartrate 50 mg PO DAILY 08/06/17 [History] Potassium Chloride 10 meq PO DAILY 08/06/17 [History] Forms: ED Department Discharge Referrals: Abelino Long MD [Consulting Physician] - (Follow up with Dr. Long next week) - Discharge Summary/Plan Comment DC Time >30 min.: No Discharge Summary/Plan Comment: Reassured that troponins are all normal and probably a consequence of heart failure. Should follow up with Dr. Long next week and keep scheduled pulmonology appointment. - General Info Date of Service: 08/06/17 Admission Dx/Problem (Free Text: Chest Pressure Functional Status: Reports: Pain Controlled, Tolerating Diet, Ambulating - Review of Systems General: Reports: Fatigue HEENT: Reports: No Symptoms Pulmonary: Reports: Shortness of Breath. Denies: Cough, Wheezing Cardiovascular: Denies: Chest Pain, Edema, Lightheadedness Gastrointestinal: Reports: No Symptoms Genitourinary: Reports: No Symptoms Musculoskeletal: Reports: No Symptoms - Patient Data Vitals - Most Recent: Last Vital Signs Temp 96.6 F 08/06/17 11:53 Pulse 72 08/06/17 11:53 Resp 16 08/06/17 11:53 BP 121/74 08/06/17 11:53 Pulse Ox 98 08/06/17 11:53 Weight - Most Recent: 272 lb Med Orders - Current: Current Medications Discontinued Medications Acetaminophen (Tylenol) 650 mg PO Q4H PRN PRN Reason: Pain (Mild 1-3)/fever Enoxaparin Sodium (Lovenox) 40 mg SUBCUT Q24H DAVIDSON Last Admin: 08/06/17 10:13 Dose: 40 mg Ondansetron HCl (Zofran Odt) 4 mg PO Q4H PRN PRN Reason: nausea, able to take PO Sodium Chloride (Saline Flush) 10 ml FLUSH ASDIRECTED PRN PRN Reason: Keep Vein Open - Exam General: Reports: Alert, Oriented HEENT: Reports: Mucous Membr. Moist/[place] Neck: Reports: Supple Lungs: Reports: Clear to Auscultation, Normal Respiratory Effort Cardiovascular: Reports: Regular Rate, Regular Rhythm GI/Abdominal Exam: Normal Bowel Sounds, Soft, Non-Tender Extremities: Pedal Edema Skin: Reports: Warm, Dry Neurological: Reports: No New Focal Deficit Psy/Mental Status: Reports: Alert, Normal Affect, Normal Mood *Q Meaningful Use (DIS) - VTE *Q VTE Criteria *Q: - Stroke *Q Stroke Criteria *Q: - AMI *Q AMI Criteria *Q:
== END 2017-08-06 14:59 | disposition home or self-care (01) ==
LOC: CC.ED 23:03 → UNDOADMOB 08-06 09:00 → CC.MS 08-06 09:00 → UNDODISOB 08-06 14:59
PROVIDERS: ADMIT Physician Assistant Medical; ATTEND Family Medicine
DX: I25.118 Atherosclerotic heart disease of native coronary artery with other forms of angina pectoris (principal); I11.0 Hypertensive heart disease with heart failure; I50.9 Heart failure, unspecified; I25.2 Old myocardial infarction; E78.00 Pure hypercholesterolemia, unspecified; J44.9 Chronic obstructive pulmonary disease, unspecified; G47.30 Sleep apnea, unspecified; E11.9 Type 2 diabetes mellitus without complications; Z88.1 Allergy status to other antibiotic agents; Z88.8 Allergy status to other drugs, medicaments and biological substances; Z79.4 Long term (current) use of insulin; Z79.82 Long term (current) use of aspirin; Z79.899 Other long term (current) drug therapy; Z95.1 Presence of aortocoronary bypass graft; Z95.810 Presence of automatic (implantable) cardiac defibrillator; Z90.89 Acquired absence of other organs; Z98.890 Other specified postprocedural states; Z87.891 Personal history of nicotine dependence; Z82.49 Family history of ischemic heart disease and other diseases of the circulatory system
CPT/HCPCS: 36415; 71020; 80048; 82550; 82962; 83615; 83880; 84484; 85025; 85379; 85610; 85730; 93005; 99285; J1650; 96372; G0378